=== PATIENT | female | born 1980 | race Caucasian/White ===

== ENCOUNTER 2016-05-07 08:57 | Emergency (ER) | payer BC ==
--- NOTE | 2016-05-07 09:44 | CT REPORT ---
Examination: Noncontrast enhanced CT of the brain. HISTORY: Headache. Family history of CLOTH DESIZING RANGE TENDER neoplasm. COMPARISON: None available. TECHNIQUE: Axial noncontrast enhanced images the brain utilizing dose reduction technique. FINDINGS: No intracranial mass. No intracranial hemorrhage. No extra-axial fluid collection. Normal ventricular size and position. No midline shift. No evidence for acute or evolving stroke. No calvarial fracture. Mucosal thickening paranasal sinuses. No air-fluid levels. Clear mastoid air c ells. IMPRESSION: Paranasal sinus disease. Otherwise normal CT head without contrast. Final Electronic Signature: This report was electronically signed by Iggy Hatch MD, FACR on 05/07/2016 9:42 AM. aaron /
[2016-05-07] MEDS ORDERED: KETOROLAC TROMETHAMINE 30 MG/ML VIAL ONE (10:21)
--- NOTE | 2016-05-07 11:03 | ER NURSING DOCUMENTATION ---
Nurse's Notes [facility] Name:Melissa Jesus Age:35 yrs Sex:Female :1980 Arrival Date:05/07/2016 Time:08:57 Bed5 Private MD:Thais Palafox Diagnosis:Acute Headache Presentation: 05/07 08:58 Presenting complaint: Patient states: pt woke up at 1 Am with a bad headache and N/V. st pt tried Tylenol but vomited it up. pt states that she has gotten tension headache in the past but never this bad. Transition of care: Home. 08:58 Method Of Arrival: Private Vehicle st 09:08 Acuity: CHARITY 3 st Triage Assessment: 08:58 Headache History: The patient has had previous headaches and this one is more severe st than previous episodes. General: Appears uncomfortable, Behavior is cooperative. Pain: Complains of pain in headache. upper her neck and accross the front. Pain currently is 7 out of 10 on a pain scale. At worst was 10 out of 10 on a pain scale. Pain began 8 hours Also complains of nausea. EENT: No deficits noted. Neuro: Level of Consciousness is awake, alert, Oriented to person, place, time, event, Hog Sticker are equal bilaterally Moves all extremities. Facial symmetry appears normal, Denies blurred vision. Cardiovascular: No deficits noted. Respiratory: No deficits noted. Historical: - Allergies: No known drug Allergies; - Home Meds: 1. None - PMHx: None; - PSHx: None; - Tetanus: < 10 years. - Ebola Screening: : Patient denies exposure to infectious person. Patient denies travel to an Ebola-affected area in the 21 days before illness onset. . - Immunization history: Pneumococcal vaccine status is unknown. - Social history: Smoking status: Patient states was never smoker of tobacco. Patient/guardian denies using alcohol, marijuana. Screenin:36 Infectious Disease Risk None. Abuse screen: Denies threats or abuse. Denies injuries st from another. pt feels safe at home. Nutritional screening: No deficits noted. Vital Signs: 08:58 BP 139 / 73; Pulse 66; Resp 16; Temp 98.0; Pulse Ox 98% on R/A; Pain 7/10; st 11:01 BP 116 / 72; Pulse 66; Pulse Ox 96% on R/A; Pain 2/10; st Lizy Coma Score: 10:00 Eye Response: spontaneous(4). Verbal Response: oriented(5). Motor Response: obeys tl1 commands(6). Total: 15. ED Course: 08:58 Patient arrived in ED. ama 08:59 Thais Palafox DO is Private Physician. ama 09:03 Kev Viera MD is Attending Physician. tl1 09:08 Adriane Jennings RN is Primary Nurse. st 09:[address] 09:[address] ms 09:11 went to transfer pt to CT and Dr. Viera had not seen pt yet. CT waiting. ms 09:[address] that pt is ready. ms 09:32 Patient moved back from CT. ms 09:36 Valuables Remains with patient Bed in low position. Lights dimmed. Warm blanket given. st 09:48 Inserted peripheral IV: 20 gauge in right antecubital area and blood collected. st 10:[address] 10:49 Thais Palafox DO is Referral Physician. tl1 Administered Medications: 10:14 Drug: Toradol 15 mg; Route: IVP; Site: right antecubital; st 11:01 Follow up: Response: Pain is decreased st Outcome: 10:50 Discharge ordered by . tl1 11:02 Patient left the ED. st 11:02 Discharged to home ambulatory. st 11:02 Condition: improved 11:02 Discharge instructions given to patient, Instructed on discharge instructions, follow up and referral plans. medication usage, Prescriptions given X 1. 0304 09:08 Discharge F/U Call: Unable to reach: no answer st Signatures: Adriane Jennings RN RN Lau Kathleen ms Nikita Hill, Reg Reg Kev Rene MD MD tl1
--- NOTE | 2016-05-07 11:03 | ER PHYSICIAN DOCUMENTATION ---
Physician Documentation [facility] Name:Melissa Jesus Age:35 yrs Sex:Female :1980 Arrival Date:05/07/2016 Time:08:57 Bed5 Private MD:Thais Palafox EDAylinKev Disposition: 05/07/16 10:50 Discharged to Home/Self Care. Impression: Acute Headache. - Condition is Good. - Prescriptions for Zofran 4 mg Oral Tablet - take 1-2 tablet by ORAL route every 4-6 hours As needed; 10 tablet. - Medical Reconciliation form form. - Follow up: Thais Palafox DO; When: 4- 6 days; Reason: Recheck today's complaints, Continuance of care. - Problem is an ongoing problem. - Symptoms have improved. - Notes: Tylenol or ibuprofen, or both , may be taken for headaches in the future. Your head CT is normal except for some chronic appearing mucosal thickening in your sinuses, which is a common incidental finding. HPI: 05/07 09:04 This 35 yrs old Female presents to ER with complaints of Headache. tl1 09:22 The patient complains of pain to the forehead, left side of the back of head and left tl1 base of the skull. The patient describes the headache as constant, throbbing. Onset: The symptoms/episode began/occurred gradually, at 01:00. Severity of symptoms: At its worst the pain was severe, in the emergency department the pain is unchanged. The patient has experienced similar episodes in the past, multiple times. She has a long h/o headaches that she says is related to some degenerative disc disease. The headaches are occipital and self limited. She has never had to go to the ED before. This headache is different than usual; more frontal and quite a bit more severe than ususal. The pain started in her neck, became occipital and was worse with any pressure on her neck She called the clinic triage nurse who recommended she come to the ED for a head CT. She denies f/c/s. No speech, vision or gait problems. No n/w/t.. Historical: - Allergies: No known drug Allergies; - Home Meds: 1. None - PMHx: None; - PSHx: None; - Tetanus: < 10 years. - Ebola Screening: : Patient denies exposure to infectious person. Patient denies travel to an Ebola-affected area in the 21 days before illness onset. . - Immunization history: Pneumococcal vaccine status is unknown. - Social history: Smoking status: Patient states was never smoker of tobacco. Patient/guardian denies using alcohol, marijuana. ROS: 14:21 Constitutional: Negative for body aches, chills, fatigue, fever, malaise, poor PO tl1 intake. 14:21 Eyes: Negative for blurry vision, pain, photophobia, redness, swelling, visual disturbance, vision loss. 14:21 Cardiovascular: Negative for chest pain, palpitations. 14:21 Respiratory: Negative for cough, shortness of breath. 14:21 Neuro: Negative for altered mental status, dizziness, gait disturbance, hearing loss, numbness, speech changes, syncope, tingling, visual changes, weakness. Exam: 09:30 Constitutional: This is a well developed, well nourished patient who is awake, alert, tl1 and in no acute distress. Head/Face: Normocephalic, atraumatic. Eyes: Pupils equal round and reactive to light, extra-ocular motions intact. Lids and lashes normal. Conjunctiva and sclera are non-icteric and not injected. Cornea within normal limits. Periorbital areas with no swelling, redness, or edema. ENT: Nares patent. No nasal discharge, no septal abnormalities noted. Tympanic membranes are normal and external auditory canals are clear. Oropharynx with no redness, swelling, or masses, exudates, or evidence of obstruction, uvula midline. Mucous membranes moist. 09:30 Neck: Trachea midline, no thyromegaly or masses palpated, and no cervical tl1 lymphadenopathy. Supple, full range of motion without nuchal rigidity, or vertebral point tenderness. No Meningismus. 09:30 Chest/axilla: Exam negative for acute changes. 09:30 Cardiovascular: Rate: normal, Rhythm: regular, Heart sounds: normal, Edema: is not appreciated, JVD: is not appreciated. 09:30 Respiratory: the patient does not display signs of respiratory distress, Respirations: normal, Breath sounds: are normal. 09:30 Abdomen/GI: Palpation: abdomen is soft and non-tender. 09:30 Musculoskeletal/extremity: Exam is negative for acute changes. 09:30 Skin: Exam negative for acute changes. 09:30 Neuro: Orientation: is normal, Mentation: is normal, Memory: is normal, Cranial nerves: grossly normal, Motor: is normal, moves all fours, strength is 5/5 in all extremities, Sensation: light touch sense is normal, Gait: is steady, at a normal pace, without difficulty, appropriate for age, Deep tendon reflexes are 1 (trace) + in the right brachioradialis, right patellar, left brachioradialis and left patellar. 10:00 Eyes: Periorbital structures: appear normal, Pupils: equal, round, and reactive to tl1 light and accomodation, Extraocular movements: intact throughout, Conjunctiva: normal, Nystagmus: is not appreciated. Vital Signs: 08:58 BP 139 / 73; Pulse 66; Resp 16; Temp 98.0; Pulse Ox 98% on R/A; Pain 7/10; st 11:01 BP 116 / 72; Pulse 66; Pulse Ox 96% on R/A; Pain 2/10; st Whitmore Coma Score: 10:00 Eye Response: spontaneous(4). Verbal Response: oriented(5). Motor Response: obeys tl1 commands(6). Total: 15. MDM: 09:04 Patient medically screened. tl1 10:00 Differential diagnosis: cerebral abscess, cluster headache, cerebral vascular accident, tl1 intracerebral hemorrhage, meningitis, meningoencephalitis, migraine, neoplasm, subarachnoid bleed, tension headache, trigeminal neuralgia, vasomotor headache. Data reviewed: vital signs, nurses notes, radiologic studies, CT scan, and as a result, I will discharge patient. Counseling: I had a detailed discussion with the patient and/or guardian regarding: the historical points, exam findings, and any diagnostic results supporting the discharge/admit diagnosis, radiology results, the need for outpatient follow up, for a recheck, to return to the emergency department if symptoms worsen or persist or if there are any questions or concerns that arise at home. Medication response: The patient's symptoms have improved, Response to treatment: the patient's symptoms have markedly improved after treatment, and as a result, I will discharge patient. 05/07 09:45 Order name: CAT SCAN; HEAD W/O CON [id number]; Complete Time: 14:42 EDMS 05/07 14:42 Interpretation: Normal Except: mucosal sinus thickening. tl1 Dispensed Medications: 10:14 Drug: Toradol 15 mg; Route: IVP; Site: right antecubital; st 11:01 Follow up: Response: Pain is decreased st Signatures: Adriane Jennings RN RN Kev Weldon MD MD tl1
== END 2016-05-07 11:03 | disposition home or self-care (01) ==
LOC: ER 08:57
DX: R51 Headache (principal); R11.2 Nausea with vomiting, unspecified
CPT/HCPCS: 70450; 96374; 99284; J1885